=== PATIENT | male | born 1980 | race Caucasian/White ===

== ENCOUNTER 2022-09-22 16:48 | Emergency (ER) | payer OTHER, SELFPAY ==
[2022-09-22 16:57] VITALS: BP 104/67; PULSE 52; RESP 20; TEMP 36.6; O2SAT 100
--- NOTE | 2022-09-22 17:13 | ED.NAVMDI ---
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 Patient states symptoms have since resolved and he feels much better but he was sent for evaluation by his boss. Related Data Home Medications Medication Instructions Recorded Confirmed No Home Medications 09/22/22 09/22/22 Allergies Allergy/AdvReac Type Severity Reaction Status Date / Time No Known Allergies Allergy Verified 09/22/22 16:57 Review of Systems Review of Systems: CONSTITUTIONAL: Denies fever, chills, or sweats. EYES: Denies visual changes, redness, or discharge. ENT: Denies rhinorrhea, congestion, sore throat, or otalgia. CARDIOVASCULAR: Denies chest pain, palpitations, or edema. RESPIRATORY: Denies cough or dyspnea. GASTROINTESTINAL: Denies abdominal pain, nausea, vomiting, or diarrhea. GENITOURINARY: Denies dysuria or hematuria. SKIN: Denies rash or itching. MUSCULOSKELETAL: Denies back pain, joint pain, or myalgia. NEUROLOGIC: Denies headache, numbness, or weakness. PSYCHIATRIC: Denies anxiety or depression. PMFSH Comments At time of signature, agree with nursing past medical, surgical, social and family history. There is no relevant family history pertinent to the presenting complaint Exam Narrative: GENERAL: Well-appearing, well-nourished, and in no acute distress. HEAD: Normocephalic, atraumatic. EYES: PERRLA and EOMI. ENT: Nares clear, no rhinorrhea or epistaxis. Mucous membranes moist. NECK: Supple. CHEST: Clear to auscultation. No respiratory distress. HEART: Regular rate and rhythm. No murmur heard. Normal peripheral pulses. ABDOMEN: Soft, nontender, nondistended, normal active bowel sounds. EXTREMITIES: Normal range of motion. No edema. SKIN: Warm, dry, no rash. NEURO: No focal deficits. Alert and oriented x3. Elena Coma Scale Eye Opening: Spontaneous 4 Darwin Coma Scale Motor: Obeys Commands 6 Darwin Coma Scale Verbal: Oriented 5 Elena Coma Scale Total 15 Course Course Level of Care: Express Care Visit Vital Signs Vital signs: Vital Signs Temperature 36.6 C 09/22/22 16:57 Pulse Rate 52 L 09/22/22 16:57 Respiratory Rate 20 09/22/22 16:57 Blood Pressure 104/67 09/22/22 16:57 Pulse Oximetry 100 09/22/22 16:57 Oxygen Delivery Room Air 09/22/22 16:57 Temperature 36.6 C 09/22/22 16:57 Pulse Rate 52 L 09/22/22 16:57 Respiratory Rate 20 09/22/22 16:57 Blood Pressure 104/67 09/22/22 16:57 Pulse Oximetry 100 09/22/22 16:57 Oxygen Delivery Room Air 09/22/22 16:57 Discharge Plan Discharge Clinical Impression: Gastroenteritis Patient Disposition: Home, Self-Care Condition: Stable Instructions: Acute Nausea and Vomiting (DC) Additional Instructions: Clear liquids for the next 8-10 hours, then advance to a bland diet as tolerated A bland diet can consist of--BRAT diet which is bananas, rice, applesauce, and toast Avoid fried, greasy, fatty, fried foods .bland/bratdiet Start with a bland/ brat diet, non-caffeinated fluids, probiotics, oral rehydration solution. Avoid aggravating foods/drinks and lactose. Dairy free diets until symptoms resolve. Avoid diet drinks, caffeinated products, sugary drinks and artificial sweeteners. Watch for dehydration and red flags. Avoid caffeine, nicotine, and alcohol Return to your regular diet in the next 3-4 days Medication as directed for nausea and vomiting Sometimes ibuprofen/Aleve can cause increased stomach upset [id number] Imodium if develop diarrhea Follow-up with her PCP if continued problems or uncontrolled pain -If you have any worsening of symptoms or any other concerns please go to the ED immediately. Prescriptions: No Action No Home Medications Follow-up/Referrals: Maryellen,Mirian Pop APN [Pr
== END 2022-09-22 17:17 | disposition home or self-care (01) ==
PROVIDERS: Emergency Provider Nurse Practitioner Family; PCP Nurse Practitioner Family
DX: K52.9 Noninfective gastroenteritis and colitis, unspecified (principal)
CPT/HCPCS: 99211; G0463

== ENCOUNTER 2023-07-05 15:22 | Emergency (ER) | payer OTHER, SELFPAY ==
[2023-07-05 15:27] VITALS: BP 97/58; PULSE 77; RESP 14; TEMP 37.3; O2SAT 96
--- NOTE | 2023-07-05 15:37 | ED.GENADULT ---
HPI - General Adult General Chief complaint: Upper Respiratory Infection Stated complaint: Cough/Dizziness Source: patient, RN notes reviewed and old records reviewed Mode of arrival: ambulatory Limitations: no limitations History of Present Illness HPI narrative: 43-year-old male presents to [facility] with complaint of cough, congestion, myalgia, headache,fatigue this started yesterday. Patient states symptoms have slightly improved today. patient taking [id number] medications with no relief. Patient denies chest pain, shortness of breath, weakness, vomiting. MD complaint: Flu-like symptoms Onset (ago): day(s) (1) Related Data Home Medications Medication Instructions Recorded Confirmed No Home Medications 09/22/22 09/22/22 Allergies Allergy/AdvReac Type Severity Reaction Status Date / Time No Known Allergies Allergy Verified 07/05/23 15:25 Review of Systems Constitutional: Constitutional: Reports no additional constitutional complaints, Reports body ache(s), Denies chills, Denies fatigue, Denies fever(s) and Reports headache(s) Eyes: Eyes: Reports no additional eye complaints and Denies blurry vision ENT: Reports system reviewed and no additional complaints, except as documented, Denies vertigo, Denies dizziness, Denies ear discharge, Denies otalgia, Denies facial pain, Reports headache(s), Reports nasal congestion, Reports nasal discharge, Denies sinus pain, Denies sinus pressure and Reports sore throat Cardiovascular: Cardiovascular: Reports no additional cardiovascular complaints, Denies chest pain, Denies chest pain at rest, Denies rapid heart rate and Denies dyspnea Respiratory: Respiratory: Reports no additional respiratory complaints, Reports chest congestion, Reports cough, Denies pain on inspiration, Denies pain with cough and Denies dyspnea Gastrointestinal: Gastrointestinal: Denies abdominal pain, Denies diarrhea, Denies nausea and Denies vomiting Integumentary/Breasts: Skin/Breast: Denies rash Neurologic: Reports system reviewed and no additional complaints, except as documented, Denies vertigo, Denies dizziness and Denies headache(s) Endocrine: Endocrine: Denies fatigue PMFSH Comments At the time of my signature, I reviewed and agree with the nursing past medical, surgical, social, and family history. There is no relevant family history pertinent to the patient complaint. Exam Const: General: cooperative, no acute distress, ill appearing acutely and well nourished Nutritional Appearance: well nourished Orientation/consciousness: patient oriented x3 Limitations: no limitations HENMT: Head: normal to inspection and normocephalic Ears: external ears normal, TM's normal bilaterally, mastoids normal and Abnormal EAC present Face/Nose/Sinus: normal facial exam Face and sinus: normal facial exam Mouth: Yes Normal oral and palatal mucosa present, Yes oropharynx normal and Yes moist mucous membranes Throat: tonsils normal, uvula midline, posterior oropharynx abnormal erythema and no uvular edema Eyes: General: appearance normal, both eyes and all related structures Sclera: sclerae normal Pupils: Equal, round and reactive pupils present Resp: Effort & Inspection: normal respiratory effort, able to speak in complete sentences, no audible wheezes, no cough, no respiratory distress and no retractions Auscultation: clear to auscultation bilaterally, no crackles, no rales, no rhonchi and no wheezes Cardio: Rate: regular rate Rhythm: regular rhythm Skin: General skin exam: normal color and no rashes or lesions noted Neuro: General: patient oriented x3 Cranial nerves: Yes Equal, round and reactive pupils present Psych: Appearance: grossly normal Mental Status: mental status grossly normal Speech and movement: Normal speech and movement present Affect: normal affect Course Course Emergency Course: Patient is aware of diagnosis, understands and agrees to treatment plan.? Anticipatory gu
== END 2023-07-05 16:04 | disposition home or self-care (01) ==
PROVIDERS: Emergency Provider Registered Nurse; PCP Nurse Practitioner Family
DX: J11.1 Influenza due to unidentified influenza virus with other respiratory manifestations (principal); Z20.822 Contact with and (suspected) exposure to COVID-19
CPT/HCPCS: 87426; 87804; 99213; C9803; G0463

== ENCOUNTER 2025-01-18 10:24 | Emergency (ER) | payer OTHER, SELFPAY ==
--- OUTSIDE RECORDS SUMMARY | 2025-01-18 10:37 | XMS_ITS | Clinical Summary ---
Author Organization [facility] Address [address] [place] [address] Care Team Providers Care Band Cutter Name Role Phone Mirian Bojorquez NP Primary Care Provider Macario sosa Allergies Active Allergy Reactions Criticality Noted Date Comments Cinnamon Medications cyclobenzaprine (FLEXERIL) 10 mg tablet Take 1 tablet (10 mg total) by mouth 3 (three) times a day as needed for muscle spasms 12 tablet 05/24/2021 Active Social History Tobacco Use Types Packs/Day Years Used Date Smoking Tobacco: Every Day Smokeless Tobacco: Never Personal Safety Answer Date Recorded Have you ever been in or are you currently in a harmful physical or emotional relationship or is someone making you feel afraid or unsafe? 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 Gender Identity Not on file Sexual Orientation Not on file Obstetrics History Last Filed Vital Signs Vital Sign Reading Time Taken Comments Blood Pressure 106/64 06/28/2023 3:39 PM CONCRETE SWIMMING POOL INSTALLER Pulse 85 06/28/2023 3:39 PM CONCRETE SWIMMING POOL INSTALLER Temperature 36.7 C (98.1 F) 06/28/2023 3:39 PM CONCRETE SWIMMING POOL INSTALLER Respiratory Rate 16 06/28/2023 3:39 PM CONCRETE SWIMMING POOL INSTALLER Oxygen Saturation 100% 06/28/2023 3:39 PM CONCRETE SWIMMING POOL INSTALLER Inhaled Oxygen Concentration - - Weight 57.6 kg (127 lb) 06/28/2023 3:39 PM CONCRETE SWIMMING POOL INSTALLER Height 165.1 cm (5' 5) 06/28/2023 3:39 PM CONCRETE SWIMMING POOL INSTALLER Body Mass Index 21.13 06/28/2023 3:39 PM CONCRETE SWIMMING POOL INSTALLER Plan of Treatment Health Maintenance Due Date Last Done Comments Depression Screening 1981 Hepatitis C Screening 1981 DTaP/Tdap/Td Vaccine (1 - Tdap) 02/07/1992 Varicella Vaccines (1 of 2 - 13+ 2-dose series) 1994 Hepatitis B Screening 1999 Regular Well Visit/Exam 18-64 1999 Pneumococcal vaccine <65 (1 of 2 - PCV) 02/07/2000 Influenza Vaccine (Season Ended) 2025 HPV Vaccines Aged Out No longer eligi ble based on patient's age to complete this topic Insurance Care Teams Band Cutter Relationship Specialty Start Date End Date Mirian Bojorquez NP PCP - General 05/24/21
--- OUTSIDE RECORDS SUMMARY | 2025-01-18 10:37 | XMS_ITS | Referral Summary ---
Author Organization [facility] Address [address] [place] [address] Care Team Providers Care Landscaper Helper Name Role Phone Mirian Bojorquez NP Primary [...] on file Legal Sex Male 4:24 PM COAGULATING BATH OPERATOR Gender Identity Not on file Sexual Orientation Not on file Last Filed Vital Signs Vital Sign Reading Time Taken Comments Blood Pressure 106/64 06/28/2023 3:39 PM COAGULATING BATH OPERATOR Pulse 85 06/28/2023 3:39 PM COAGULATING BATH OPERATOR Temperature 36.7 C (98.1 F) 06/28/2023 3:39 PM COAGULATING BATH OPERATOR Respiratory Rate 16 06/28/2023 3:39 PM COAGULATING BATH OPERATOR Oxygen Saturation 100% 06/28/2023 3:39 PM COAGULATING BATH OPERATOR Inhaled Oxygen Concentration - - Weight 57.6 kg (127 lb) 06/28/2023 3:39 PM COAGULATING BATH OPERATOR Height 165.1 cm (5' 5) 06/28/2023 3:39 PM COAGULATING BATH OPERATOR Body Mass Index 21.13 06/28/2023 3:39 PM COAGULATING BATH OPERATOR Plan of Treatment Not on file Insurance Care Teams Landscaper Helper Relationship Specialty Start Date End Date Mirian Bojorquez NP PCP - General 05/24/21
--- OUTSIDE RECORDS SUMMARY | 2025-01-18 10:37 | XMS_ITS | Clinical Summary ---
Author Organization [facility] Address [address] [place] [address] Phone Care Team Providers Care Heating Unit Installer Name Role Phone Mirian Bojorquez APRN, CNP Primary Care Provider [phone] Allergies No known active allergies Medications cyclobenzaprine (FLEXERIL) 10 MG Tablet Take 1 Tab by mouth nightly as needed for Muscle spasms for up to 10 doses. 10 Tab 12/26/2019 Active naproxen (NAPROSYN) 500 MG Tablet Take 1 Tablet by mouth 2 times daily as needed for Moderate or more severe pain. 20 Tablet 11/24/2020 Active traMADol (ULTRAM) 50 MG Tablet Take 1 Tablet by mouth every 6 hours as needed for Moderate or more severe pain. 12 Tablet 01/13/2021 Active Social History Tobacco Use Types Packs/Day Years Used Date Smoking Tobacco: Every Day Cigarettes Smokeless Tobacco: Never Alcohol Use Standard Drinks/Week Comments Not Currently 0 (1 standard drink = 0.6 oz pur e alcohol) Sex and Gender Information Value Date Recorded Sex Assigned at Not on file Legal Sex Male 8:03 PM CDT Gender Identity Not on file Sexual Orientation Not on file Last Filed Vital Signs Vital Sign Reading Time Taken Comments Blood Pressure 114/74 01/13/2021 12:54 AM CDT Pulse 66 01/13/2021 12:54 AM CDT Temperature 36.7 C (98.1 F) 01/12/2021 11:14 PM CDT Respiratory Rate 14 01/13/2021 12:54 AM CDT Oxygen Saturation 99% 01/13/2021 12:54 AM CDT Inhaled Oxygen Concentration - - Weight 61.2 kg (135 lb) 01/12/2021 11:14 PM CDT Height 167.6 cm (5' 6) 01/12/2021 11:14 PM CDT Body Mass Index 21.79 01/12/2021 11:14 PM CDT Plan of Treatment Health Maintenance Due Date Last Done Comments Hepatitis C Virus (HCV) Screening 1981 TdaP Immunization 1981 Human Papillomavirus (HPV) Immunization (1 - Male 3-dose series) 02/07/1996 Hepatitis B Immunization (1 of 3 - 19+ 3-dose series) 02/07/2000 SARS-COV-2 Immunization (1 - season) 2024 Influenza Immunization (Seas on Ended) 2025 Respiratory Syncytial Virus (RSV) Immunization (Adult) (1 - 1-dose 75+ series) 02/07/2056 Meningococcal Immunization (ACWY) Aged Out No longer eligible based on patient's age to complete this topic Pneumococcal Immunization Combined Aged Out No longer eligible based on patient's age to complete this topic Rotavirus Immunization Aged Out No lo nger eligible based on patient's age to complete this topic Insurance MEDICAID [employer] Care Teams Heating Unit Installer Relationship Specialty Start Date End Date Mirian Bojorquez APRN, DARSHAN [address] [place] [address] PCP - General Family Medicine 12/26/19
--- OUTSIDE RECORDS SUMMARY | 2025-01-19 00:12 | XMS_ITS | Clinical Summary ---
Author Organization [facility] Address [address] [place] [address] Phone Care Team Providers Care Overlock Hemmer Name Role Phone Mirian Bojorquez APRN, CNP Primary Care Provider [phone] Allergies No known active allergies Medications cyclobenzaprine [...] Insurance MEDICAID [employer] Care Teams Overlock Hemmer Relationship Specialty Start Date End Date Mirian Bojorquez APRN, DARSHAN [address] [place] [address] PCP - General Family Medicine 12/26/19
--- OUTSIDE RECORDS SUMMARY | 2025-01-19 00:12 | XMS_ITS | Clinical Summary ---
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 Gender Identity Not on file Sexual Orientation Not on file Obstetrics History Last Filed Vital Signs Vital Sign Reading Time Taken Comments Blood Pressure 106/64 06/28/2023 3:39 PM ACADEMIC HOSPITALIST Pulse 85 06/28/2023 3:39 PM ACADEMIC HOSPITALIST Temperature 36.7 C (98.1 F) 06/28/2023 3:39 PM ACADEMIC HOSPITALIST Respiratory Rate 16 06/28/2023 3:39 PM ACADEMIC HOSPITALIST Oxygen Saturation 100% 06/28/2023 3:39 PM ACADEMIC HOSPITALIST Inhaled Oxygen Concentration - - Weight 57.6 kg (127 lb) 06/28/2023 3:39 PM ACADEMIC HOSPITALIST Height 165.1 cm (5' 5) 06/28/2023 3:39 PM ACADEMIC HOSPITALIST Body Mass Index 21.13 06/28/2023 3:39 PM ACADEMIC HOSPITALIST Plan of Treatment Health Maintenance Due Date [...] to complete this topic Insurance Care Teams Medicaid Biller Relationship Specialty Start Date End Date Mirian Bojorquez NP PCP - General 05/24/21
--- OUTSIDE RECORDS SUMMARY | 2025-01-19 00:13 | XMS_ITS | Referral Summary ---
Author Organization [facility] Address [address] [place] [address] Care Team Providers Care Senior Bookkeeper Name Role Phone Mirian Bojorquez NP Primary [...] on file Legal Sex Male 4:24 PM STATISTICAL MACHINE MECHANIC Gender Identity Not on file Sexual Orientation Not on file Last Filed Vital Signs Vital Sign Reading Time Taken Comments Blood Pressure 106/64 06/28/2023 3:39 PM STATISTICAL MACHINE MECHANIC Pulse 85 06/28/2023 3:39 PM STATISTICAL MACHINE MECHANIC Temperature 36.7 C (98.1 F) 06/28/2023 3:39 PM STATISTICAL MACHINE MECHANIC Respiratory Rate 16 06/28/2023 3:39 PM STATISTICAL MACHINE MECHANIC Oxygen Saturation 100% 06/28/2023 3:39 PM STATISTICAL MACHINE MECHANIC Inhaled Oxygen Concentration - - Weight 57.6 kg (127 lb) 06/28/2023 3:39 PM STATISTICAL MACHINE MECHANIC Height 165.1 cm (5' 5) 06/28/2023 3:39 PM STATISTICAL MACHINE MECHANIC Body Mass Index 21.13 06/28/2023 3:39 PM STATISTICAL MACHINE MECHANIC Plan of Treatment Not on file Insurance Care Teams Senior Bookkeeper Relationship Specialty Start Date End Date Mirian Bojorquez NP PCP - General 05/24/21
== END 2025-01-18 10:25 | disposition left against medical advice (07) ==
LOC: ANHED 01-19 00:11
PROVIDERS: PCP Nurse Practitioner Family
DX: Z53.21 Procedure and treatment not carried out due to patient leaving prior to being seen by health care provider (principal)
CPT/HCPCS: 99199

== ENCOUNTER 2025-03-21 15:38 | Emergency (ER) | payer OTHER, SELFPAY ==
--- OUTSIDE RECORDS SUMMARY | 2025-03-21 15:41 | XMS_ITS | Clinical Summary ---
Author Organization [facility] Address [address] [place] [address] Phone Care Team Providers Care Janitor Custodian Name Role Phone Mirian Bojorquez APRN, CNP Primary Care Provider [phone] Allergies No known active allergies Medications cyclobenzaprine [...] Virus (HCV) Screening 1981 TdaP Immunization 1981 Hepatitis B Immunization (1 of 3 - 19+ 3-dose series) 02/07/2000 Human Papillomavirus (HPV) Immunization (1 - 3-dose SCDM series) 02/07/2008 Influenza Immunization (#1) 2025 SARS-COV-2 Immunization ( season) 2025 Respiratory Syncytial Virus (RSV) Immunization (Adult) [...] Insurance MEDICAID [employer] Care Teams Janitor Custodian Relationship Specialty Start Date End Date Mirian Bojorquez APRN, CNP PCP - General Family Medicine 12/26/19
--- OUTSIDE RECORDS SUMMARY | 2025-03-21 15:42 | XMS_ITS | Clinical Summary ---
Author Organization [facility] Address [address] [place] [address] Care Team Providers Care Senior Linux Systems Administrator Name Role Phone Mirian Bojorquez NP Primary [...] on file Legal Sex Male 4:24 PM HOUSEKEEPING SUPERVISOR Gender Identity Not on file Sexual Orientation Not on file Obstetrics History Last Filed Vital Signs Vital Sign Reading Time Taken Comments Blood Pressure 106/64 06/28/2023 3:39 PM HOUSEKEEPING SUPERVISOR Pulse 85 06/28/2023 3:39 PM HOUSEKEEPING SUPERVISOR Temperature 36.7 C (98.1 F) 06/28/2023 3:39 PM HOUSEKEEPING SUPERVISOR Respiratory Rate 16 06/28/2023 3:39 PM HOUSEKEEPING SUPERVISOR Oxygen Saturation 100% 06/28/2023 3:39 PM HOUSEKEEPING SUPERVISOR Inhaled Oxygen Concentration - - Weight 57.6 kg (127 lb) 06/28/2023 3:39 PM HOUSEKEEPING SUPERVISOR Height 165.1 cm (5' 5) 06/28/2023 3:39 PM HOUSEKEEPING SUPERVISOR Body Mass Index 21.13 06/28/2023 3:39 PM HOUSEKEEPING SUPERVISOR Plan of Treatment Health Maintenance Due Date Last Done Comments Depression Screening 1981 Hepatitis C Screening 1981 DTaP/Tdap/Td Vaccine (1 - Tdap) 02/07/1992 Varicella Vaccines (1 of 2 - 13+ 2-dose series) 1993 Hepatitis B Screening 1999 Regular Well Visit/Exam 18-64 1999 Pneumococcal vaccine <65 (1 of 2 - PCV) 02/07/2000 HPV Vaccines (1 - 3-dose SCDM series) 02/07/2008 Influenza Vaccine (#1) 2025 Insurance Care Teams Senior Linux Systems Administrator Relationship Specialty Start Date End Date Mirian Bojorquez NP PCP - General 05/24/21
[2025-03-21 15:43] VITALS: BP 134/79; PULSE 73; RESP 20; TEMP 36.8; O2SAT 98
--- NOTE | 2025-03-21 16:02 | ED_ITS ---
HPI - Nausea/Vomiting/Diarrhea General Chief complaint: Nausea/Vomiting/Diarrhea Stated complaint: nausea/needs work note Time Seen by Provider: 03/21/25 15:40 45-year-old male Presents [facility] complaining of nausea and vomiting since today. Patient said he felt fine this morning when he woke up and he went to work and ate some dinner and lunch and shortly after he developed nausea and vomited twice at work. Patient was sent home from work and sent here to be cleared to return to work. Which reports his vomit was watery black states he was drinking a lot of [employer]eps[employer] at work. Patient is not take any blood thinners. Patient denies any abdominal pain, fevers, body aches, chills, coffee-ground emesis, vomiting blood, black tarry stools, bloody stools, or any other symptoms. Patient last vomited approximately 1 hour ago. Patient family keep some fluid on since vomiting. Patient denies any significant past medical history. Patient denies any alcohol use. Source: patient and RN notes reviewed Mode of arrival: ambulatory Limitations: no limitations Related Data Allergies Allergy/AdvReac Type Severity Reaction Status Date / Time No Known Allergies Allergy Verified 07/05/23 15:25 Review of Systems Review of Systems: CONSTITUTIONAL: Denies fever, chills, body aches, or sweats. EYES: Denies visual changes, redness, or discharge. ENT: Denies rhinorrhea, congestion, sore throat, or otalgia. CARDIOVASCULAR: Denies chest pain, palpitations, or edema. RESPIRATORY: Denies cough or dyspnea. GASTROINTESTINAL: Denies abdominal pain, bloody stools, diarrhea, vomiting blood, coffee-ground emesis, hematochezia. Positive for nausea, vomiting. GENITOURINARY: Denies dysuria or hematuria. SKIN: Denies rash or itching. MUSCULOSKELETAL: Denies back pain, joint pain, or myalgia. NEUROLOGIC: Denies headache, numbness, or weakness. PSYCHIATRIC: Denies anxiety or depression. All other systems reviewed are negative, except as documented in HPI. Exam Narrative: GENERAL: This is a well-nourished, well-developed adult, in no apparent distress. They are non ill-appearing, nontoxic appearing. HEAD: normocephalic, atraumatic. EYES: Sclera clear/white. Vision is grossly intact. Conjunctiva normal bilat erally. Extraocular movements intact. EARS: External ears normal, Hearing grossly intact. NOSE: External nose normal THROAT: Mucous membranes moist NECK: Normal range of motion CARDIOVASCULAR: Regular rate and rhythm, no clicks, gallops, rubs, or murmurs. RESPIRATORY: Respiratory rate normal, respiratory effort nonlabored, no respiratory distress. Lung sounds clear to auscultation. Lung sounds equal bilaterally. No adventitious lung sounds. GASTROINTESTINAL: Abdomen soft, flat, non-tender, nondistended. Bowel sounds are active. No hepato-splenomegaly, or palpable masses. No guarding or rigidity. No rebound tenderness. SKIN: warm, Dry, intact with no suspicious lesions or rash, good texture and turgor. NEURO: awake, alert, and oriented to person, place and time. There were no obvi ous focal neurologic abnormalities. EXTREMITIES: No joint tenderness, effusion, or edema noted. BACK: Nontender without deformity. No CVA tenderness. Course Course Emergency Course: Portions of this record may have been created with voice recognition software Level of Care: Express Care Visit Vital Signs Vital signs: Vital Signs Temperature 98.3 F 03/21/25 15:43 Pulse Rate 73 03/21/25 15:43 Respiratory Rate 20 03/21/25 15:43 Blood Pressure 134/79 03/21/25 15:43 Pulse Oximetry 98 03/21/25 15:43 Oxygen Delivery Room Air 03/21/25 15:43 Temperature 98.3 F 03/21/25 15:43 Pulse Rate 73 03/21/25 15:43 Respiratory Rate 20 03/21/25 15:43 Blood Pressure 134/79 03/21/25 15:43 Pulse Oximetry 98 03/21/25 15:43 Oxygen Delivery Room Air 03/21/25 15:43 MDM - Nausea/Vomiting/Diarrhea MDM Narrative Medical decision making narrative: Patient may have a gastroenteritis or food poisoning. No peritoneal findings on exam. Patient vital signs are hemodynamically stable, patient is nontoxic ap pearing in no apparent distress. Will prescribe a course of Zofran for nausea and vomiting. Discussed physical exam findings. Advised supportive measures and signs/symptoms to go to the ER. Pt is appropriate for outpt treatment and f/u. Differential Diagnosis Differential diagnosis: Likely traveler's diarrhea, food poisoning and gastro enteritis Discharge Plan Discharge Clinical Impression: Vomiting Qualifiers: Vomiting type: unspecified Nausea presence: with nausea Qualified Code(s): R11.2 - Nausea with vomiting, unspecified Patient Disposition: Home Condition: Stable Instructions: Acute Nausea and Vomiting (ED) Additional Instructions: It may be possible you have a viral gastroenteritis. This is normally a self- limiting condition or resolve within 24-48 hours. However sometimes symptoms may linger. Take Zofran as directed for nausea and vomiting. Recommend hydration with plenty of fluids electrolyte supplementation such as Pedialyte. Start with a clear liquid diet and progress back to her normal diet as tolerated. Follow-up PCP in 3-5 days. If Your unable to keep anything down, you developed abdominal pain, fevers, uncontrollable diarrhea, concerns of dehydration, vomiting blood, black tarry stools or any other concerns please go to the ER immediately. Patient Language: Pashto Prescriptions: New ondansetron 4 mg tablet,disintegrating 4 mg PO Q8H PRN (Reason: nausea and vomiting) Qty: 14 0RF Follow-up/Referrals: Maryellen,Mirian Pop APN [Primary Care Provider, Unknown] Stand Alone Forms: Work/School Release IP Time of Disposition: 15:55
== END 2025-03-21 16:02 | disposition home or self-care (01) ==
PROVIDERS: PCP Nurse Practitioner Family
DX: R11.2 Nausea with vomiting, unspecified (principal)
CPT/HCPCS: 99213; G0463